=== PATIENT | male | born 1980 | race Caucasian/White ===

== ENCOUNTER 2018-03-05 11:35 | Emergency (ER) | payer BC ==
[2018-03-05 11:49] VITALS: TEMP 98.6
[2018-03-05] MEDS ORDERED: KETOROLAC TROMETHAMINE INJ 60 MG/2 ML VIAL IM ONE (11:51)
--- NOTE | 2018-03-05 11:52 | ED.PDOC ---
History of Present Illness - General Chief Complaint: Lower Extremity Injury Stated Complaint: right ankle pain Time Seen by Provider: 03/05/18 11:50 Source: patient, RN notes reviewed, Vital Signs reviewed Additional Information: 37 YEAR OLD INJURED THE RIGHT ANKLE WHILE [place]BING [place] WHILE HE WAS FISHING NOW HAS SWELLING BURNING PAIN IN THE RIGHT ANKLE - History of Present Illness Timing/Duration: 1 hour, changing over time Severity: moderate Improving Factors: immobilization Worsening Factors: movement Associated Symptoms: denies symptoms Allergies/Adverse Reactions: Allergies NO KNOWN ALLERGY Allergy (Verified 03/05/18 11:45) Home Medications: Ambulatory Orders Acetamin W/Cod #3 Tab [Tylenol w/CODEINE #3] 1 ea PO Q6HR PRN #40 tab 03/05/18 Emtricitabine-Tenofovir Disopr [Truvada 200-300 mg] 1 tab PO DAILY 03/05/18 Levothyroxine Sodium [Synthroid] 100 mcg PO DAILY 03/05/18 Review of Systems - Review of Systems Constitutional: States: no symptoms reported EENTM: States: no symptoms reported Respiratory: States: no symptoms reported Cardiology: States: no symptoms reported Gastrointestinal/Abdominal: States: no symptoms reported Genitourinary: States: no symptoms reported Skin: States: no symptoms reported Neurological: States: no symptoms reported Endocrine: States: no symptoms reported Past Medical History (General) - Patient Medical History Hx Stroke: No Hx Congestive Heart Failure: No Hx Diabetes: No Surgical History: no surgical history - Vaccination History Hx Influenza Vaccination: Yes - Social History Hx Tobacco Use: No Family Medical History - Family History Father Family History: Unknown Living Status: Unknown Physical Exam - Physical Exam General Appearance: Alert, Comfortable Eye Exam: bilateral normal Ears, Nose, Throat: hearing grossly normal, normal ENT inspection, normal pharynx Neck: non-tender, full range of motion, supple Respiratory: chest non-tender, lungs clear, normal breath sounds, no respiratory distress, no accessory muscle use Cardiovascular/Chest: normal peripheral pulses, regular rate, rhythm, no edema, no gallop, no JVD Gastrointestinal/Abdominal: normal bowel sounds, non tender, soft, no organomegaly, no pulsatile mass Back Exam: normal inspection, no CVA tenderness, no vertebral tenderness Progress - Results/Orders Results/Orders: X RAY ANKLE FRACTURE MEDIAL MALLEOLUS WE WILL PROVIDE AN ANKLE POSTERIOR SHORT LEG SPLINT CRUTCHES NO WEIGHT BEARING ANALGESICS FOLLOW UP WITH ORTHO IN 7 DAYS Departure - Departure Clinical Impression: Closed fracture of ankle, Fx medial malleolus-closed Time of Disposition: 11:56 Disposition: Discharge to Home or Self Care Departure Forms: ED Discharge - Pt. Copy, Patient Portal Self Enrollment Prescriptions: Acetamin W/Cod #3 Tab [Tylenol w/CODEINE #3] 1 ea PO Q6HR PRN #40 tab PRN Reason: Mild To Moderate Pain Home Medications: Ambulatory Orders Acetamin W/Cod #3 Tab [Tylenol w/CODEINE #3] 1 ea PO Q6HR PRN #40 tab 03/05/18 Emtricitabine-Tenofovir Disopr [Truvada 200-300 mg] 1 tab PO DAILY 03/05/18 Levothyroxine Sodium [Synthroid] 100 mcg PO DAILY 03/05/18 Additional Instructions: KEEP FOOT ELEVATED FOLLOW UP WITH ORTHOPEDIC SURGEON
--- NOTE | 2018-03-05 12:04 | RAD ---
EXAM DESCRIPTION: Ankle,Right 3 Views CLINICAL HISTORY: pain,swelling COMPARISON: None FINDINGS: Three x-ray views of the right ankle were submitted. There is an acute oblique mildly displaced fracture of the medial malleolus. There is soft tissue swelling. Bone mineralization is within normal limits. There is no radiopaque foreign body material. IMPRESSION: Acute medial malleolar fracture. Soft tissue swelling/hematoma. Electronically signed by: Roc Licea MD 03/05/2018 12:03 PM [facility]
[2018-03-05 12:26] VITALS: BP 132/76; O2SAT 97
== END 2018-03-05 12:26 | disposition home or self-care (01) ==
LOC: ER 11:35
DX: S82.51XA Displaced fracture of medial malleolus of right tibia, initial encounter for closed fracture (principal); X58.XXXA Exposure to other specified factors, initial encounter; Y93.89 Activity, other specified; Y92.89 Other specified places as the place of occurrence of the external cause
CPT/HCPCS: 73610; J1885